=== PATIENT | female | born 1945 | race Caucasian/White ===

== ENCOUNTER 2021-04-27 20:54 | Emergency (ER) | payer MEDICARE ==
--- NOTE | 2021-04-27 21:55 | EDM.PDOC ---
ED HPI GENERAL MEDICAL PROBLEM - General Chief Complaint: Bite:Animal, Insect Stated Complaint: BUG BIT REACTION Time Seen by Provider: 04/27/21 21:04 Source of Information: Reports: Patient History Limitations: Reports: No Limitations - History of Present Illness INITIAL COMMENTS - FREE TEXT/NARRATIVE: chief complaint: fly bites This is a 75 tear old female presents to the ER for evaluation of lower feet. she reports [place] Kay[place], when flies bites to her toes, feet and ankle. This happened yesterday morning, last night the pain and itch was so bad she was unable to sleep. now her feet are red and swollen. has tried Benadryl cream and hydrocortisone cream - not helping denies fever or chills Onset Date: 04/26/21 Duration: Hour(s):, Constant Location: Reports: Lower Extremity, Left, Radiates to (right lower extremity) Quality: Reports: Ache, Burning, Other (pruritic) Severity: Severe Improves with: Reports: None Worsens with: Reports: None Context: Reports: Other (fly bites) Associated Symptoms: Reports: Rash Treatments ENTERTAINMENT USHER: Reports: Other Medication(s) Bilateral Feet Pain Score (Numeric/FACES): 7 - Related Data Allergies Allergy/AdvReac Type Severity Reaction Status Date / Time lactose Allergy Diarrhea Verified 04/27/21 21:14 Penicillins Allergy Diarrhea Verified 04/27/21 21:13 Past Medical History HEENT History: Reports: Impaired Vision Cardiovascular History: Reports: High Cholesterol Gastrointestinal History: Reports: GERD 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: - Infectious Disease History Infectious Disease History: Reports: Chicken Pox - Past Surgical History Musculoskeletal Surgical History: Reports: Hip Replacement Other Musculoskeletal Surgeries/Procedures:: bilateral hip replacements Social & Family History - Tobacco Use Tobacco Use Status *Q: Never Tobacco User - Caffeine Use Caffeine Use: Reports: Coffee - Recreational Drug Use Recreational Drug Use: No - Living Situation & Occupation Occupation: Retired (here on vacation, lives in [place], [place].) ED ROS GENERAL - Review of Systems Review Of Systems: See Below Constitutional: Reports: Other (general good health, now with painful swollen feet. ) HEENT: Reports: No Symptoms Respiratory: Reports: No Symptoms Cardiovascular: Reports: No Symptoms Endocrine: Reports: No Symptoms GI/Abdominal: Reports: No Symptoms : Reports: No Symptoms Musculoskeletal: Reports: Foot Pain (bilateral feet pain) Skin: Reports: Pruritis (feet), Rash (feet), Erythema (noted to toes and foot) Neurological: Reports: No Symptoms Psychiatric: Reports: No Symptoms Hematologic/Lymphatic: Reports: No Symptoms Immunologic: Reports: No Symptoms ED EXAM, ANIMAL BITE - Physical Exam Exam: See Below General Appearance: Alert, WD/WN, No Apparent Distress, Other (neat and well groomed, pleasant adult female) Eye Exam: Bilateral Eye: Normal Inspection Head: Atraumatic, Normocephalic Neck: Normal Inspection, Supple, Non-Tender, Full Range of Motion Respiratory/Chest: No Respiratory Distress, Lungs Clear, Normal Breath Sounds, No Accessory Muscle Use, Chest Non-Tender Cardiovascular: Normal Peripheral Pulses, Regular Rate, Rhythm, No Edema, No Murmur Peripheral Pulses: 2+: Radial (L), Radial (R), Dorsalis Pedis (L), Dorsalis Pedis (R) GI/Abdominal: Soft, Non-Tender Back Exam: Normal Inspection, Full Range of Motion Extremities: Pedal Edema, Increased Warmth, Redness, Other (bilateral feet with bright red rash- irregular borders, edema, pain to touch, toes with edema) Neurological: Alert, Oriented, Normal Cognition, Normal Gait, No Motor/Sensory Deficits Psychiatric: Normal Affect, Normal Mood Skin Exam: Rash Lymphadenopathy: Bilateral: No Adenopathy Course - Vital Signs Last Recorded V/S: Last Vital Signs Temp 97.6 F 04/27/21 21:10 Pulse 88 04/27/21 21:10 Resp 16 04/27/21 21:10 BP 149/54 H 04/27/21 21:10 Pulse Ox 96 04/27/21 21:10 Departure - Departure Time of Disposition: 21:47 Disposition: Home, Self-Care 01 Condition: Good Clinical Impression: Cellulitis Qualifiers: Site of cellulitis of extremity: lower extremity Laterality: unspecified laterality Insect bite Qualifiers: Encounter type: initial encounter Site of insect bite: foot Laterality: unspecified laterality Qualified Code(s): S90.869A - Insect bite (nonvenomous), unspecified foot, initial encounter - Discharge Information *PRESCRIPTION DRUG MONITORING PROGRAM REVIEWED*: Not Applicable *COPY OF PRESCRIPTION DRUG MONITORING REPORT IN PATIENT EULALIA: Not Applicable Instructions: Cellulitis, Adult, [id number], Insect Bite, Adult, [id number] Referrals: PCP,None [Primary Care Provider] - Forms: ED Department Discharge Care Plan Goals: bilateral feet and ankle -insect bite- start tonight Medrol dose of pack as directed -continue creams to feet as needed for itch Cellulitis of feet -start tonight Keflex 500mg take two times a day Return to ER for any fever, chills, nausea, vomiting, worsen rash or has any concerns. Sepsis Event Note (ED) - Evaluation Sepsis Screening Result: No Definite Risk - Focused Exam Vital Signs: Vital Signs Temp Pulse Resp BP Pulse Ox 04/27/21 21:10 97.6 F 88 16 149/54 H 96 - Problem List & Annotations (1) Insect bite SNOMED Code(s): 164194048, 590088398 Code(s): W57.XXXA - BIT/STUNG BY NONVENOM INSECT & OTH NONVENOM ARTHROPODS, INIT Status: Acute Priority: High Qualifiers: Encounter type: initial encounter Site of insect bite: foot Laterality: unspecified laterality Qualified Code(s): S90.869A - Insect bite (nonvenomous), unspecified foot, initial encounter; W57.XXXA - Bitten or stung by nonvenomous insect and other nonvenomous arthropods, initial encounter (2) Cellulitis SNOMED Code(s): 347932477 Code(s): L03.90 - CELLULITIS, UNSPECIFIED Status: Acute Priority: High Qualifiers: Site of cellulitis of extremity: lower extremity Laterality: unspecified laterality - Problem List Review Problem List Initiated/Reviewed/Updated: Yes - Assessment/Plan Plan: bilateral feet and ankle -insect bite- start tonight Medrol dose of pack as directed -continue creams to feet as needed for itch Cellulitis of feet -start tonight Keflex 500mg take two times a day Return to ER for any fever, chills, nausea, vomiting, worsen rash or has any concerns.
== END 2021-04-27 22:07 | disposition home or self-care (01) ==
LOC: JP.ED 20:54
DX: S90.862A Insect bite (nonvenomous), left foot, initial encounter (principal); S90.861A Insect bite (nonvenomous), right foot, initial encounter; L03.116 Cellulitis of left lower limb; L03.115 Cellulitis of right lower limb; Z91.011 Allergy to milk products; Z88.0 Allergy status to penicillin; W57.XXXA Bitten or stung by nonvenomous insect and other nonvenomous arthropods, initial encounter
CPT/HCPCS: 99282